=== PATIENT | female | born 2000 | race Caucasian/White ===

== ENCOUNTER → 2021-06-10 13:11 | Outpatient (BNVA) | payer BC, OTHER, SELFPAY | PROVIDERS: PCP Physician Assistant; Visit Provider Advanced Practice Midwife ==

== ENCOUNTER → 2021-06-13 10:33 | Outpatient (BNVA) | payer BC, OTHER, SELFPAY | PROVIDERS: PCP Physician Assistant; Visit Provider Advanced Practice Midwife ==

== ENCOUNTER 2021-10-07 09:45 | Outpatient (REF) | payer BC, SELFPAY ==
[2021-10-09 03:21] LABS: CT PCR NOT DETECTED (Not Detect.); NG PCR NOT DETECTED (Not Detect.)
== END 2021-10-07 09:46 | disposition home or self-care (01) ==
LOC: HO.LAB 09:45
PROVIDERS: PCP Physician Assistant; Visit Provider Advanced Practice Midwife
DX: Z01.419 Encounter for gynecological examination (general) (routine) without abnormal findings (principal); Z11.3 Encounter for screening for infections with a predominantly sexual mode of transmission; Z11.8 Encounter for screening for other infectious and parasitic diseases
CPT/HCPCS: 81025; 87491; 87591; 88142

== ENCOUNTER → 2022-12-21 08:04 | Outpatient (BNVA) | payer BC, SELFPAY | PROVIDERS: Visit Provider Advanced Practice Midwife | DX: Z13.89 Encounter for screening for other disorder (principal) ==

== ENCOUNTER 2023-03-09 07:55 | Outpatient (REF) | payer BC, SELFPAY ==
[2023-03-09 15:36] LABS: CT PCR NOT DETECTED (Not Detect.); NG PCR NOT DETECTED (Not Detect.)
[2023-03-10 12:36] LABS: BV Int Neg Control Negative (Negative); BV Int Pos Control Positive (Positive)
== END 2023-03-09 07:56 | disposition home or self-care (01) ==
LOC: HO.LAB 07:55
PROVIDERS: Visit Provider Advanced Practice Midwife
DX: N89.8 Other specified noninflammatory disorders of vagina (principal); Z20.2 Contact with and (suspected) exposure to infections with a predominantly sexual mode of transmission
CPT/HCPCS: 0353U; 87480; 87510; 87660

== ENCOUNTER 2023-03-09 08:25 | Outpatient (REF) | payer BC, SELFPAY | END 2023-03-09 08:26 | disposition home or self-care (01) | LOC: HO.LNP 08:25 | PROVIDERS: Visit Provider Advanced Practice Midwife | DX: Z13.89 Encounter for screening for other disorder (principal) ==

== ENCOUNTER 2024-03-17 14:54 | Outpatient (REF) | payer OTHER, SELFPAY ==
[2024-03-17 18:16] LABS: Bacterial Vaginosis PCR NEGATIVE (Negative); Candida Group PCR DETECTED (Not Detect); Candida glab krusei PCR NOT DETECTED (Not Detect); Trichomonas vaginalis PCR NOT DETECTED (Not Detect)
[2024-03-17 18:46] LABS: CT PCR NOT DETECTED (Not Detect.); NG PCR NOT DETECTED (Not Detect.)
== END 2024-03-17 14:55 | disposition home or self-care (01) ==
LOC: HO.LNP 14:54
PROVIDERS: Visit Provider Advanced Practice Midwife
DX: Z01.419 Encounter for gynecological examination (general) (routine) without abnormal findings (principal)
CPT/HCPCS: 0352U; 0353U; 88142

== ENCOUNTER 2025-06-21 10:17 | Outpatient (REF) | payer OTHER, SELFPAY ==
[2025-06-21 22:19] LABS: CT PCR NOT DETECTED (Not Detect.); NG PCR NOT DETECTED (Not Detect.)
== END 2025-06-21 10:18 | disposition home or self-care (01) ==
LOC: HO.LNP 10:17
PROVIDERS: Visit Provider Advanced Practice Midwife
DX: Z01.419 Encounter for gynecological examination (general) (routine) without abnormal findings (principal); Z11.3 Encounter for screening for infections with a predominantly sexual mode of transmission; Z11.8 Encounter for screening for other infectious and parasitic diseases
CPT/HCPCS: 87491; 87591

== ENCOUNTER 2025-06-21 10:17 | Outpatient (AMB) | payer OTHER, SELFPAY ==
--- NOTE | 2025-06-21 10:18 | A.OFFVIS_ITS ---
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 and no vaginal concerns Compensation Associate Required: No Information Interpreted: non-clinical & clinical Pathological Technician: Pathological Technician Present (Debora) Accompanied by: Self / Same As Patient Allergies No Known Allergies Allergy (Verified 03/17/24 15:28) Medication List - Last Reconciled 06/21/25 by Ariadne Geller LPN fluconazole 150 mg PO DAILY 1 dose levonorgestrel-ethinyl estrad 0.15 mg-30 mcg (91) (Jolessa) 1 tab PO DAILY 91 days valacyclovir (Valtrex) 2,000 mg (2 x 1 gram) PO BID 1 day Is last menstrual period known: Yes Last menstrual period: 06/20/25 Post menopausal: No Patient : No Do you need a note to return to daycare/school/sports/work: No HPI Comments Details: Patient is a premenopausal woman presenting for annual examination. 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 Doing well on OCP's. Currently is sexually active. She denies vaginal itching or irritation. STI screening offered; she accepts, declines blood work. She denies any contraindications to control such as: migraines with aura, history of DVT or pulmonary emboli, high blood pressure, liver disease, thrombol ic disorders, Lupus, +MIRNA, breast cancer, or smoking. She tries to eat healthy and stays active with exercise. Denies family history of breast, ovarian or colon cancer. Last pap smear 2023, negative. REPLACED BY [facility] Medical History Oral contraceptive use Recurrent cold sores Family History Mother Endometriosis Maternal Grandmother Diabetes Social History Household Members: Family Household Members Other:: living in [place] Housing: House Housing Other:: with parents Alcohol intake: current Alcohol intake frequency: a few times a month Patient Tobacco Use Status: Never used Tobacco Current occupational status: employed and student Current occupation: Pre [email or web address] Sexual orientation: Straight/Heterosexual Gender identity: Female Female Reproductive History Menstrual Age of Menarche: 14 Date of last menstrual period: 06/20/25 control method: pills Total pregnancies: 0 Number of Living Children: 0 Date of last pap smear: 03/17/24 (neg) History of abnormal pap smear: No History of STI: No Review of Systems Const All systems reviewed & are unremarkable except as noted in HPI and below Reports as per HPI Eyes Reports no additional complaints ENT Reports no additional complaints Card Reports no additional complaints Resp Reports no additional complaints GI Reports as per HPI and Reports no additional complaints Reports as per HPI Musc Reports no additional complaints Skin/Breast Reports as per HPI Neuro Reports no additional complaints Psych Reports no additional complaints Endo Reports no additional complaints Glynn/Lymph Reports no additional complaints Aller/Immun Reports no additional complaints Physical Exam Vital Signs: Last Vital Signs BP 102/62 06/21/25 10:25 BMI result Body Mass Index 20.1 Const General: cooperative, healthy appearing, no acute distress, well developed and alert Orientation/consciousness: patient oriented x3 HEENT Head: Yes normal to inspection Eyes General: appearance normal, both eyes and all related structures Neck Neck: Yes normal visual inspection Thyroid: Thyroid normal Chest Chest palpation & inspection: normal inspection of the chest and other (no puckering, dimpling, peau de orange, retraction, discharge, masses) Breast/axilla inspection: normal inspection of the breasts Breast/axilla palpation: normal palpation of the breasts Resp Effort & Inspection: normal respiratory effort GI Inspection: Yes normal to inspection Palpation (GI): Soft to palpation Rectal Exam - Female: deferred General: Yes bladder normal to palpation External Female Exam: normal external appearance and normal appearance of the urethra Speculum Exam - Vagina: normal appearance of the vagina, normal palpation, normal vaginal discharge and vaginal bleeding Speculum Exam - Cervix: normal appearance of the cervix and normal palpation Bimanual exam- vagina & uterus: normal bimanual exam, normal palpation, uterine size normal, bladder normal to palpation, normal palpation and non-tender Bimanual Exam- Adnexa, other: no masses OB/external & speculum: vaginal bleeding Skin General skin exam: no rashes or lesions noted Rashes: no rashes Neuro General: patient oriented x3 Cognition (Neuro): normal cognition Extrem General: Yes normal to inspection Psych Attitude: cooperative Thought process: Normal thought process present Assessment & Plan Assessment & Plan (1) Encounter for annual routine gynecological examination: Code(s): Z01.419 - Encounter for gynecological examination (general) (routine) without abnormal findings Category: Medical Plan Discussed: Current recommendations for pap smears per ASCCP guidelines. Breast awareness and periodic breast exams. Maintain a healthy lifestyle including a well balanced diet and routine exercise. control hormone use warnings: go to ER if and loss of vision, blindness, severe headache, chest pain or difficulty breathing, severe abdominal pain, or any pain or swelling in an extremity. Patient verbalizes understanding and agrees to the plan of care. She was given opportunity to ask questions and all questions were answered to the best of my ability. RTO in one year for annual plastic sewer examination. This note is constructed using voice recognition software. While every effort has been made to ensure accuracy, retail wireless sales consultant errors may have been included. Orders: Orders CT NG by PCR Vag/Cerv Today Z11.3 - Encounter for screening for infections with a predominantly sexual mode of transmission Medications: Refilled levonorgestrel-ethinyl estrad 0.15 mg-30 mcg (91) (Jolessa) 1 tab PO DAILY 91 ea 0RF 91 days Coding Level of Care Code Est Pt Prev Care 18-39y(68966) Diagnoses Encounter for annual routine gynecological examination Z01.419
[2025-06-21 10:25] VITALS: BP 102/62; BMI 20.1
== END 2025-06-21 11:12 | disposition home or self-care (01) ==
PROVIDERS: Visit Provider Advanced Practice Midwife
DX: Z01.419 Encounter for gynecological examination (general) (routine) without abnormal findings (principal)
CPT/HCPCS: 99395; 99459

== ENCOUNTER 2025-09-25 15:35 | Outpatient (AMB) | payer OTHER, SELFPAY ==
--- NOTE | 2025-09-25 15:50 | MHC.PC.OV ---
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 Internal Corrosion Specialist Required: No Accompanied by: Self / Same As Patient Allergies No Known Allergies Allergy (Verified 09/25/25 15:55) Tobacco use date assessed: 09/25/25 Dental Screening Dental Screen Date: 09/25/25 Did you have a dental visit in the last 12 months?: No Did you have a dental problem in the last 6 months where you did not have access to dental care?: No Was dental information given to patient?: No HPI HPI Comments History of Present Illness Details History of Present Illness The patient is a 25 year old female presenting to establish primary care, discuss recurrent cold sores on her nose, and evaluate a hard bump on her chest. Herpes Simplex Virus infection: The patient reports recurrent cold sores on her nose, with the first occurrence in the third grade. She experiences outbreaks approximately once per year, which she associates with stress and changes in temperature. She is inquiring about the possibility of obtaining prescriptions for this condition. Chest Wall Mass: The patient reports noticing a hard bump on her chest in June. The bump does not hurt, and she is unsure if it has grown in size. She recently felt some soreness in the area after working on her chest and arms. Anxiety: The patient reports occasional anxiety about life. She uses cannabis, which she states helps with these feelings. Surgical History: - No surgical history reported. Medications: - Oral contraceptives: Patient is currently taking an unspecified oral control pill. 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 - Tobacco Use: The patient denies smoking cigarettes but occasionally smokes. - Substance Use: The patient reports smoking cannabis for the past two years and denies any other recreational drug use. - Sexual History: The patient is sexually active. Family History: - The patient denies any family history of cancer, including colon or breast cancer, in her immediate family (mother, father, brother, sister). Diagnostic Results: - Pap smear: Patient reports having a pap smear in June, with results being consistently normal. Past Medical History - The patient denies any significant medical history, past surgeries, or hospitalizations. - She has a history of a laceration to the abdomen from glass, which required sutures when she was younger. - Menarche occurred at age 13 or 14, and she reports consistent menstrual cycles without heavy bleeding. - Her first Pap smear was at age 21, and she had her most recent one in June, with consistently normal results. Health Maintenance - Ordered comprehensive, non-fasting laboratory studies including: complete blood count, comprehensive metabolic panel, hemoglobin A1c, lipid panel, hepatitis B and C screen, HIV screen, syphilis test, magnesium, thyroid function tests, urinalysis, vitamin B12, folate, and vitamin D level. - Given her sexual activity, screening for chlamydia and gonorrhea was also ordered with her consent. - Instructed the patient that she can have the lab work done at the clinic, which opens at 9 a.m. [facility] Medical History (Updated 09/25/25 @ 16:29 by Rolo Griffin MD) Chest wall mass Herpes simplex Oral contraceptive use Recurrent cold sores Surgical History (Updated 09/25/25 @ 15:56 by Ciaran Tay CMA) No pertinent past surgical history Family History (Updated 09/25/25 @ 15:56 by Ciaran Tay CMA) Mother Endometriosis Maternal Grandmother Diabetes Social History (Updated 09/25/25 @ 15:57 by Ciaran Tay CMA) Household Members: Family Household Members Other:: living in [place] Housing: House Housing Other:: with parents Alcohol intake: current Alcohol intake frequency: a few times a month Patient Tobacco Use Status: Never used Tobacco e-Cigarette/Vaping Use: Never Used Substance Use Type: Marijuana service: No Current occupational status: employed and student Current occupation: Pre [employer] Current occupational exposures/hazards: No Sexual orientation: Straight/Heterosexual Gender identity: Female Cognitive needs: No Hearing needs: No Vision needs: No Female Reproductive History Menstrual Age of Menarche: 14 Questionnaire PHQ-9 Over the last 2 weeks, how often have you been bothered by any of the following problems? 1. Little interest or pleasure in doing things: not at all 2. Feeling down, depressed, or hopeless: not at all 3. Trouble falling or staying asleep, or sleeping too much: not at all 4. Feeling tired or having little energy: not at all 5. Poor appetite or overeating: not at all 6. Feeling bad about yourself - or that you are a failure or have let yourself or your family down: not at all 7. Trouble concentrating on things, such as reading the newspaper or watching television: not at all 8. Moving or speaking so slowly that other people could have noticed. Or the opposite - being so fidgety or restless that you have been moving around a lot more than usual: not at all 9. Thoughts that you would be better off or of hurting yourself in some way: not at all Total score: 0 Depression Screening Interpretation: Negative Depression Screening Done: Yes 68813 - PHQ-9 Billing: Yes Source: Developed by Drs. Taco Saleem, Brittany Dyer, Yuri Mason and colleagues, with an educational tung from [employer]. Thrive Questionnaire Date Thrive assessed: 09/25/25 I am a: Patient What is your living situation today?: I have a steady place to live Within the past 12 months, did the food you bought not last and you didn't have the money to get more?: Never true Within the past 12 months, did you worry whether your food would run out before you got money to buy more?: Never true Do you have trouble paying for medicines?: No Do you have trouble getting transportation to medical appointments?: No Do you have trouble paying your heating and electricity bill?: No Do you have trouble taking care of your child, family member or friend?: No Are you currently unemployed and looking for a job?: No Are you interested in more education?: No Please select the resources that you would like help with: None Currently or been in a relationship where the following occur: No concerns reported THRIVE Score: 0 AUDIT C Alcohol Use Questionnaire (AUDIT-C) 1. How often do you have a drink containing alcohol?: Monthly or less 2. How many drinks containing alcohol do you have on a typical day when you are drinking?: 1 or 2 3. How often do you have six or more drinks on one occasion?: Never Total Score: 1 CHELO-7 AMB Questionnaire CHELO-7 Date CHELO - 7 assessed: 09/25/25 Feeling nervous, anxious, or on edge: 1 = Several days Not being able to stop or control worryin = Not at all Worrying too much about different things: 0 = Not at all Trouble relaxin = Not at all Being so restless that it is hard to sit still: 0 = Not at all Becoming easily annoyed or irritable: 0 = Not at all Feeling afraid as if something awful might happen: 0 = Not at all Total CHELO-7 score (0-4 normal; 5-9 mild; 10-14 moderate; 15-21 severe): 1 Source: Developed by Drs. Taco Saleem, Brittany Dyer, Yuri Mason and colleagues, with an educational tung from [employer]. Review of Systems Narrative Review of Systems - Integumentary: Reports recurrent cold sores on the nose and a hard, non-painful bump on the chest noticed in June. - Psychological: Reports occasional anxiety. - Constitutional: Denies issues with sleep. - Genitourinary: Reports consistent urination and bowel movements. - Endocrine: Reports consistent menses, denies heavy bleeding. - Musculoskeletal: Denies swelling in her legs. 10-point ROS reviewed and negative except as noted in HPI Physical exam (Primary Care) Vital Signs: Last Vital Signs Temp 98.7 F 09/25/25 15:57 Pulse 87 09/25/25 15:57 Resp 18 09/25/25 15:57 BP 126/77 09/25/25 15:57 Pulse Ox 99 09/25/25 15:57 Oxygen Delivery Method Room Air 09/25/25 15:57 BMI result Body Mass Index 20.7 Tobacco/Smoking Status: Tobacco use Status Tobacco use date assessed 09/25/25 09/25/25 15:58 Patient Tobacco Use Status Never used Tobacco 09/25/25 15:58 e-Cigarette/Vaping Use Never Used 09/25/25 15:58 PHQ-9: PHQ-9 Score PHQ-9: Total score 0 09/25/25 15:58 Depression Screening Interpretation: Negative Thrive Assessment: Date of Thrive Assessment Date Thrive assessed 09/25/25 09/25/25 15:58 Currently or been in a relationship where the following occur: No concerns reported Narrative Physical Exam General: Well-appearing, in no acute distress. Vital signs: Within normal limits. HEENT: Normocephalic, atraumatic. PERRLA, EOMI. Conjunctiva clear, sclera anicteric. Oropharynx clear, mucous membranes moist. TMs intact bilaterally. Neck: Supple, no lymphadenopathy, no thyromegaly, no JVD or carotid bruits. Cardiovascular: RRR, normal S1/S2, no murmurs, rubs, or gallops. Peripheral pulses 2+ and symmetric. No edema. Respiratory: Lungs clear to auscultation bilaterally, no wheezes, rales, or rhonchi. Normal effort. Abdomen: Soft, non-tender, non-distended. Normoactive bowel sounds. No hepatosplenomegaly, no masses. MSK: Full range of motion, no joint swelling or deformity. Normal gait. Skin: Warm, dry, intact. No rashes, lesions, or pallor. Noted history of cold sores on the nose. Neuro: Alert and oriented x3. Cranial nerves II-XII intact. Strength 5/5 throughout. Sensation intact. Reflexes 2+ symmetric. Normal coordination and gait. Psych: Appropriate mood and affect. Normal judgment and insight. Reports occasional anxiety related to life stressors. Coding Level of Care Code New Pt Level 4 (00734) Add On Problem Visit Only Diagnoses Herpes simplex B00.9 Chest wall mass R22.2 Oral contraceptive use Z30.41 Recurrent cold sores B00.1 Anxiety F41.9 Additional Codes PHQ-9 - 84505 - PHQ-9 Billing: Yes ([id number]) Assessment & Plan Assessment & Plan (1) Herpes simplex: Code(s): B00.9 - Herpesviral infection, unspecified Category: Medical (2) Chest wall mass: Code(s): R22.2 - Localized swelling, mass and lump, trunk Category: Medical (3) Oral contraceptive use: Code(s): Z30.41 - Encounter for surveillance of contraceptive pills Category: Medical (4) Recurrent cold sores: Code(s): B00.1 - Herpesviral vesicular dermatitis Category: Medical (5) Anxiety: Code(s): F41.9 - Anxiety disorder, unspecified Plan Consent The patient provided verbal consent for comprehensive lab work, including a complete blood count, comprehensive metabolic panel, hemoglobin A1c, lipid panel, hepatitis B and C screening, HIV screen, magnesium, syphilis testing, chlamydia and gonorrhea screening, thyroid studies, urinalysis, vitamin B12, folate, and vitamin D levels. Patient was informed and verbally consented to the use of an ambient scribe for clinic note documentation during this visit. Plan 1. Herpes Simplex Virus Infection - The patient may request prescriptions as needed for future outbreaks. 2. Chest Wall Mass - The palpable 'bump' was identified on examination as a normal anatomical structure. - Provided reassurance to the patient that the finding is benign and no further action is needed. 3. Anxiety - The patient self-manages occasional anxiety with cannabis use. - No new interventions were discussed at this visit. Discussion Notes I educated the patient about the chest wall 'bump' she was concerned about. I explained the anatomy of the chest wall She appeared reassured by this explanation. I reviewed the plan for comprehensive lab work and STI screening, and she provided verbal consent for all tests. I let her know she could return to the clinic to have her blood drawn when the lab opens. Patient Instructions - The hard bump you feel on your chest is a normal part of your anatomy It is not something to worry about. - Please return to the clinic to have your blood drawn for the ordered tests. The lab opens at 9 a.m. You do not need to fast before these tests. - We will contact you with the results of your lab work. Medical Decision Making The patient is a healthy 25-year-old female presenting to [facility] care. Her primary concerns were recurrent cold sores and a palpable chest wall 'bump.' Physical examination of the chest revealed the 'bump' to be consistent with the first rib a normal anatomical structure. I reassured the patient that this was a benign finding to alleviate her anxiety. Given this is an initial visit, I recommended comprehensive lab work to establish a baseline and screen for common conditions. This includes a CBC, CMP, HbA1c, lipid panel, and various vitamin and infectious disease screenings, including STIs, for which she consented. Her history of recurrent HSV outbreaks is noted, and she will be able to request prescriptions for future episodes. No further workup is indicated for her chest concern at this time. We will follow up on her lab results. Total Time Statement 30 min Total time spent caring for the patient today includes pre-visit chart review, documentation, review of laboratory and diagnostic imaging results, medication reconciliation, medically necessary evaluation, counseling on diagnoses, care coordination, ordering appropriate tests and medications, review of tests performed by other providers, reporting test results to the patient, and communication with other healthcare providers. Orders: Orders Complete Blood Count Auto Diff Today Z13.9 - Encounter for screening, unspecified Syphilis Screen Today Z13.9 - Encounter for screening, unspecified TSH reflex Free T4 Today Z13.9 - Encounter for screening, unspecified CT NG by PCR Urine Today Z13.9 - Encounter for screening, unspecified Lipid Panel Today Z13.9 - Encounter for screening, unspecified Vitamin B12 and Folate Today Z13.9 - Encounter for screening, unspecified Hemoglobin A1c Today Z13.9 - Encounter for screening, unspecified Magnesium Today Z13.9 - Encounter for screening, unspecified Hepatitis B Surface Antibody Today Z13.9 - Encounter for screening, unspecified Hepatitis B Surface Antigen Today Z13.9 - Encounter for screening, unspecified Comprehensive Met. Panel Today Z13.9 - Encounter for screening, unspecified Hepatitis C Antibody Today Z13.9 - Encounter for screening, unspecified HIV Ab/Ag Today Z13.9 - Encounter for screening, unspecified UA CC w/rflx Micro + Cult Today Z13.9 - Encounter for screening, unspecified Vitamin D 25-OH (D2 and D3) Today Z13.9 - Encounter for screening, unspecified
[2025-09-25 15:57] VITALS: BP 126/77; PULSE 87; RESP 18; TEMP 37.1; O2SAT 99; BMI 20.7
== END 2025-09-25 16:25 | disposition home or self-care (01) ==
LOC: HO.HMCFMS 15:35
PROVIDERS: PCP Student in an Organized Health Care Education/Training Program; Visit Provider Student in an Organized Health Care Education/Training Program
DX: B00.9 Herpesviral infection, unspecified (principal); R22.2 Localized swelling, mass and lump, trunk; Z30.41 Encounter for surveillance of contraceptive pills; B00.1 Herpesviral vesicular dermatitis; F41.9 Anxiety disorder, unspecified

== ENCOUNTER → 2025-09-25 15:35 | Outpatient (BNVA) | payer OTHER, SELFPAY | PROVIDERS: PCP Student in an Organized Health Care Education/Training Program; Visit Provider Student in an Organized Health Care Education/Training Program | DX: B00.9 Herpesviral infection, unspecified (principal); R22.2 Localized swelling, mass and lump, trunk; B00.1 Herpesviral vesicular dermatitis; F41.9 Anxiety disorder, unspecified; Z30.41 Encounter for surveillance of contraceptive pills | CPT/HCPCS: 96127 ==

== ENCOUNTER 2025-09-26 08:05 | Outpatient (REF) | payer OTHER, SELFPAY ==
[2025-09-26 10:32] LABS: Appearance Urine Clear; Glucose Urine UA Negative (Negative); PH 6.0 (5.0-9.0); Specific Gravity - Urine 1.020 (1.005-1.025); UMIC TRIGGER UACC YES
[2025-09-26 10:38] LABS: MANUAL DIFF FLAG NO
[2025-09-26 10:49] LABS: Hematocrit 45.0 % (37.0-47.0); Hemoglobin 15.6 g/dl (12.0-16.0); Imm Gran Abs Auto 0.01 X10*3/uL (0.00-0.03); Imm Gran Pct Auto 0.2 % (0.0-0.4); Lymphocytes Absolute Auto 2.6 X10*3/uL (1.2-4.9); Mean Corpuscular HGB Conc 34.7 g/dl (31.0-35.0); Mean Corpuscular Hemoglobin 32.3 pg (27.0-33.0); Mean Corpuscular Volume 93.2 fL (80.0-98.0); NRBC Abs Auto 0.000 X10*3/uL (0.0-0.012); NRBC Pct Auto 0.0 /100WBC (0.0-0.2); Platelet Count 263 X10*3/uL (160-400); Red Blood Count 4.83 X10*6/uL (4.20-5.50); White Blood Count 6.0 X10*3/uL (4.8-10.8)
[2025-09-26 11:24] LABS: Syphilis Screen Nonreactive (Nonreactive)
[2025-09-26 11:25] LABS: Alanine Aminotransferase 20 U/L (0-31); Albumin Level 5.2 g/dL (3.5-5.0); Alkaline Phosphatase 49 U/L (39-117); Anion Gap 12 (12-20); Aspartate Amino Transferase 23 U/L (5-31); Blood Urea Nitrogen 15 mg/dL (9-16); Calcium 9.7 mg/dL (8.4-10.2); Carbon Dioxide 26 mmol/L (22-29); Chloride 104 mmol/L (96-108); Cholesterol 198 mg/dL (<200); Estimated Glomerular Filt Rate > 60; HDL Cholesterol 65 mg/dL (>40); Magnesium 2.2 mg/dL (1.6-2.6); Potassium 3.7 mmol/L (3.3-5.1); Sodium 138 mmol/L (135-145); Total Protein 7.8 g/dL (6.5-8.0); Triglycerides 64 mg/dL (<150)
[2025-09-26 11:28] LABS: HBS Num1 1.45 mIU/mL (0-7.99); HIV Num 1 0.07 S/CO (0.00-0.99); ~HepC Num1 0.11 S/CO (0.00-0.79); ~Hepatitis B Surface Antibody NONREACTIVE (Nonreactive); ~Hepatitis C Antibody Nonreactive (Nonreactive)
[2025-09-26 11:42] LABS: Folate 11.7 ng/mL (> or = 4.0); Vitamin B12 570 pg/mL (200-900)
[2025-09-26 12:39] LABS: CT PCR Urine NOT DETECTED (Not Detect.); NG PCR Urine NOT DETECTED (Not Detect.)
[2025-09-27 13:15] LABS: HBsAGNum1 0.26 S/CO (0.00-0.99); Hepatitis B Surface Antigen Negative (Negative)
== END 2025-09-26 08:06 | disposition home or self-care (01) ==
LOC: HO.HMGCLDS 08:05
PROVIDERS: PCP Student in an Organized Health Care Education/Training Program; Visit Provider Student in an Organized Health Care Education/Training Program
DX: Z11.4 Encounter for screening for human immunodeficiency virus [HIV] (principal); Z20.2 Contact with and (suspected) exposure to infections with a predominantly sexual mode of transmission; Z13.89 Encounter for screening for other disorder; Z13.21 Encounter for screening for nutritional disorder; Z13.1 Encounter for screening for diabetes mellitus; Z13.29 Encounter for screening for other suspected endocrine disorder; Z13.6 Encounter for screening for cardiovascular disorders
CPT/HCPCS: 80053; 80061; 81001; 82306; 82607; 82746; 83036; 83735; 84443; 85025; 86706; 86780; 86803; 87340; 87389; 87491; 87591

== ENCOUNTER 2025-10-02 13:08 | Outpatient (AMB) | payer OTHER, SELFPAY ==
--- NOTE | 2025-10-02 13:12 | MHC.PC.OV ---
Vital Signs 10/02/25 13:18 Height 5 ft 4 in Weight 117 lb 6 oz BMI 20.1 BP 111/66 Blood Pressure Location Lt brachial Position Sitting Pulse 76 Pulse Source Pulse Oximeter Temp 98.2 F Temp Source Oral Pulse Oximetry (%) 99 Oxygen Delivery Method Room Air Intake Visit Reasons: 1 wk f/u - double booked ok per MD Accompanied by: Self / Same As Patient Allergies No Known Allergies Allergy (Verified 10/02/25 13:12) Medication List - Last Reconciled 10/02/25 by Rolo Griffin MD levonorgestrel-ethinyl estrad 0.15 mg-30 mcg (91) (Jolessa) 1 tab PO DAILY 91 days Tobacco use date assessed: 10/02/25 Dental Screening Dental Screen Date: 10/02/25 Did you have a dental visit in the last 12 months?: No HPI HPI Comments History of Present Illness Details History of Present Illness The patient is a 25 year old female presenting for a follow-up visit to review recent laboratory results. Hyperbilirubinemia: A recent laboratory test showed an elevated total bilirubin of 1.6 mg/dL, with a normal range being below 1.0 mg/dL. Elevated LDL cholesterol: Recent non-fasting lab work revealed an elevated LDL cholesterol level of 121 mg/dL, which is above the target of less than 100 mg/dL. Her total cholesterol was 198 mg/dL and HDL was 65 mg/dL. Diagnostic Results: - Complete Blood Count: White blood cells, red blood cells, hemoglobin, and platelets are within normal limits. - Comprehensive Metabolic Panel: Sodium, potassium, renal function, calcium, and magnesium are normal. - Liver function tests are normal with the exception of an elevated total bilirubin of 1.6 mg/dL (normal <1.0 mg/dL). - Random Glucose: Normal, with no evidence of prediabetes or diabetes. - Lipid Panel (non-fasting): Total cholesterol is 198 mg/dL, LDL cholesterol is 121 mg/dL, and HDL cholesterol is 65 mg/dL. - Vitamin B12: Normal. - Vitamin D: Normal. - Folate: Normal. - Thyroid function tests: Normal. - Urinalysis: Normal. - Infectious Disease Screen: Negative for syphilis, hepatitis B, hepatitis C, and HIV. Past Medical History Health Maintenance - Reviewed all recent laboratory results with the patient. - Recommended follow-up in 3 to 6 months for continued health monitoring. [facility] Medical History Chest wall mass Herpes simplex Oral contraceptive use Recurrent cold sores Surgical History No pertinent past surgical history Family History Mother Endometriosis Maternal Grandmother Diabetes Social History Household Members: Family Household Members Other:: living in [place] Housing: House Housing Other:: with parents Alcohol intake: current Alcohol intake frequency: a few times a month Patient Tobacco Use Status: Never used Tobacco e-Cigarette/Vaping Use: Never Used Substance Use Type: Marijuana service: No Current occupational status: employed and student Current occupation: Pre [employer] Current occupational exposures/hazards: No Sexual orientation: Straight/Heterosexual Gender identity: Female Cognitive needs: No Hearing needs: No Vision needs: No Female Reproductive History Menstrual Age of Menarche: 14 Questionnaire PHQ-9 Over the last 2 weeks, how often have you been bothered by any of the following problems? 1. Little interest or pleasure in doing things: not at all 2. Feeling down, depressed, or hopeless: not at all 3. Trouble falling or staying asleep, or sleeping too much: not at all 4. Feeling tired or having little energy: not at all 5. Poor appetite or overeating: not at all 6. Feeling bad about yourself - or that you are a failure or have let yourself or your family down: not at all 7. Trouble concentrating on things, such as reading the newspaper or watching television: not at all 8. Moving or speaking so slowly that other people could have noticed. Or the opposite - being so fidgety or restless that you have been moving around a lot more than usual: not at all 9. Thoughts that you would be better off or of hurting yourself in some way: not at all Total score: 0 Depression Screening Interpretation: Negative Depression Screening Done: Yes 60330 - PHQ-9 Billing: Yes Source: Developed by Drs. Taco Saleem, Brittany B.W. Yuri Dyer and colleagues, with an educational tung from [employer]. Thrive Questionnaire Date Thrive assessed: 10/02/25 I am a: Patient What is your living situation today?: I have a steady place to live Within the past 12 months, did the food you bought not last and you didn't have the money to get more?: Never true Within the past 12 months, did you worry whether your food would run out before you got money to buy more?: Never true Do you have trouble paying for medicines?: No Do you have trouble getting transportation to medical appointments?: No Do you have trouble paying your heating and electricity bill?: No Do you have trouble taking care of your child, family member or friend?: No Do you have trouble with day-to-day activities such as bathing, preparing meals, shopping, managing finances, etc.?: No Are you currently unemployed and looking for a job?: No Are you interested in more education?: No Currently or been in a relationship where the following occur: No concerns reported THRIVE Score: 0 AUDIT C Alcohol Use Questionnaire (AUDIT-C) 1. How often do you have a drink containing alcohol?: Monthly or less 2. How many drinks containing alcohol do you have on a typical day when you are drinking?: 1 or 2 3. How often do you have six or more drinks on one occasion?: Never Total Score: 1 CHELO-7 AMB Questionnaire CHELO-7 Date CHELO - 7 assessed: 10/02/25 Feeling nervous, anxious, or on edge: 1 = Several days Not being able to stop or control worryin = Not at all Worrying too much about different things: 0 = Not at all Trouble relaxin = Not at all Being so restless that it is hard to sit still: 0 = Not at all Becoming easily annoyed or irritable: 0 = Not at all Feeling afraid as if something awful might happen: 0 = Not at all Total CHELO-7 score (0-4 normal; 5-9 mild; 10-14 moderate; 15-21 severe): 1 Source: Developed by Drs. Taco Saleem, Yuri Brooks and colleagues, with an educational tung from [employer]. Review of Systems Narrative Review of Systems - General: Denies any acute complaints or concerns. 10-point ROS reviewed and negative except as noted in HPI Physical exam (Primary Care) Vital Signs: Last Vital Signs Temp 98.2 F 10/02/25 13:18 Pulse 76 10/02/25 13:18 BP 111/66 10/02/25 13:18 Pulse Ox 99 10/02/25 13:18 Oxygen Delivery Method Room Air 10/02/25 13:18 BMI result Body Mass Index 20.1 Tobacco/Smoking Status: Tobacco use Status Tobacco use date assessed 10/02/25 10/02/25 13:13 Patient Tobacco Use Status Never used Tobacco 10/02/25 13:13 e-Cigarette/Vaping Use Never Used 10/02/25 13:13 PHQ-9: PHQ-9 Score PHQ-9: Total score 0 10/02/25 13:21 Depression Screening Interpretation: Negative Thrive Assessment: Date of Thrive Assessment Date Thrive assessed 10/02/25 10/02/25 13:13 Currently or been in a relationship where the following occur: No concerns reported Narrative Physical Exam General: Well-appearing, in no acute distress. Vital signs: Within normal limits. HEENT: Normocephalic, atraumatic. PERRLA, EOMI. Conjunctiva clear, sclera anicteric. Oropharynx clear, mucous membranes moist. TMs intact bilaterally. Neck: Supple, no lymphadenopathy, no thyromegaly, no JVD or carotid bruits. Cardiovascular: RRR, normal S1/S2, no murmurs, rubs, or gallops. Peripheral pulses 2+ and symmetric. No edema. Respiratory: Lungs clear to auscultation bilaterally, no wheezes, rales, or rhonchi. Normal effort. Abdomen: Soft, non-tender, non-distended. Normoactive bowel sounds. No hepatosplenomegaly, no masses. MSK: Full range of motion, no joint swelling or deformity. Normal gait. Skin: Warm, dry, intact. No rashes, lesions, or pallor. Neuro: Alert and oriented x3. Cranial nerves II-XII intact. Strength 5/5 throughout. Sensation intact. Reflexes 2+ symmetric. Normal coordination and gait. Psych: Appropriate mood and affect. Normal judgment and insight. Office Procedures Flu Questionnaire Does the patient have a severe egg allergy?: No Does the patient have severe life threatening allergies?: No Does the patient have a fever or illness today?: No Has the patient ever had Guillain-[place] Syndrome?: No Has the patient ever had any past reaction to a flu shot?: No Immunizations Fluarix [id number] (PF) 45 mcg (15 mcg x 3)/0.5 mL IM syringe Performing Provider: Rolo Griffin MD Performing Location: [facility] Documented (not given) by: Graciela Osullivan CMA on 10/02/25 13:21 Reason Not Given: Received Previously Coding Level of Care Code Est Pt Level 3 (31729) Add On Problem Visit Only Diagnoses Hyperbilirubinemia E80.6 Elevated LDL cholesterol level E78.00 Additional Codes PHQ-9 - 90887 - PHQ-9 Billing: Yes ([id number]) Assessment & Plan Assessment & Plan (1) Hyperbilirubinemia: Code(s): E80.6 - Other disorders of bilirubin metabolism Category: Medical (2) Elevated LDL cholesterol level: Code(s): E78.00 - Pure hypercholesterolemia, unspecified Category: Medical Plan Consent Patient was informed and verbally consented to the use of an ambient scribe for clinic note documentation during this visit. Plan 1. Hyperbilirubinemia - The total bilirubin was noted to be elevated at 1.6 mg/dL. - Reassurance was provided that this is not an immediate concern. - Plan to repeat labs to monitor the level. 2. Elevated Ldl Cholesterol - The non-fasting LDL cholesterol was slightly elevated at 121 mg/dL. - Acknowledged that the value is likely lower as the test was not performed while fasting. - No immediate intervention is planned. Discussion Notes I reviewed the patient's recent laboratory results with her. I explained that most of her results, including her CBC, renal function, electrolytes, glucose, vitamin levels, and thyroid function, were all normal. I noted a mild elevation in her total bilirubin to 1.6 mg/dL and informed her that while we will repeat the lab to monitor it, it is not currently a cause for concern. I also pointed out her non-fasting LDL cholesterol was slightly high at 121 mg/dL, but explained this was likely due to the non-fasting state. We reviewed her negative infectious disease screening results. The patient had no questions, and we agreed on a follow-up in 3 to 6 months. Patient Instructions - Your recent lab work looks very good overall. - Your total bilirubin, a marker related to the liver, was slightly high. We will recheck this with your next blood test, but it is not something to worry about now. - Your bad cholesterol (LDL) was a little high, but this is likely because you did not fast for the test. - All your screenings for infections like HIV, hepatitis, and syphilis were negative. - Please schedule a follow-up appointment in 3 to 6 months. Medical Decision Making The patient is a 25-year-old female here for a review of her annual labs. The results are largely reassuring. Her complete blood count, metabolic panel, and thyroid studies are within normal limits. The mild elevation in total bilirubin to 1.6 mg/dL is noted; without other liver function abnormalities, this is likely benign, but I will recheck this finding on future lab work to establish a trend. Her non-fasting LDL is slightly elevated at 121 mg/dL, but her total cholesterol is under 200 mg/dL and her HDL is good. Given the non-fasting nature of the test, this is not clinically concerning at this time and does not warrant intervention. Her infectious disease screenings are negative. The overall assessment is that the patient is in good health, and the plan is for routine follow-up in 3-6 months. Total Time Statement 20 min Total time spent caring for the patient today includes pre-visit chart review, documentation, review of laboratory and diagnostic imaging results, medication reconciliation, medically necessary evaluation, counseling on diagnoses, care coordination, ordering appropriate tests and medications, review of tests performed by other providers, reporting test results to the patient, and communication with other healthcare providers. Orders: Orders Influenza [id number] Immunization Today Z23 - Encounter for immunization
[2025-10-02 13:18] VITALS: BP 111/66; PULSE 76; TEMP 36.8; O2SAT 99; BMI 20.1
== END 2025-10-02 13:25 | disposition home or self-care (01) ==
LOC: HO.HMCFMS 13:09
PROVIDERS: PCP Student in an Organized Health Care Education/Training Program; Visit Provider Student in an Organized Health Care Education/Training Program
DX: E80.6 Other disorders of bilirubin metabolism (principal); E78.00 Pure hypercholesterolemia, unspecified; Z23 Encounter for immunization

== ENCOUNTER → 2025-10-02 13:08 | Outpatient (BNVA) | payer OTHER, SELFPAY | PROVIDERS: PCP Student in an Organized Health Care Education/Training Program; Visit Provider Student in an Organized Health Care Education/Training Program | DX: E80.6 Other disorders of bilirubin metabolism (principal); E78.00 Pure hypercholesterolemia, unspecified; Z28.89 Immunization not carried out for other reason | CPT/HCPCS: 90471; 96127 ==